=== PATIENT | male | born 1985 | race American Indian/Alaskan Native ===

== ENCOUNTER 2021-01-18 18:28 | Inpatient (IN) | payer OTHER ==
[~2021-01-18] VITALS: Ht 172.7 cm; Wt 119.6 kg
[~2021-01-18 18:28] MED LIST: CEPHALEXIN500 MG PO
--- NOTE | 2021-01-21 14:55 | EKG ---
[facility] [address] [place] [address] Signed Suspect arm lead reversal, interpretation assumes no reversal Unusual P axis, possible ectopic atrial rhythm Lateral infarct , age undetermined Inferior infarct , age undetermined Abnormal ECG No previous ECGs available Confirmed by LOUIS RICHARDSON MD ([id number]) on 01/21/2021 2:55:01 PM Electronically Signed By: LOUIS RICHARDSON MD 01/21/21 1455 PATIENT NAME: REBECA FLORES Electrocardiogram DATE OF : 83 PHYSICIAN: LOUIS RICHARDSON MD REPORT #: [id number] REPORT IS CONFIDENTIAL AND NOT TO BE RELEASED WITHOUT AUTHORIZATION
[2021-01-23] MEDS ORDERED: NICOTINE PATCH1 EACH TD (11:22)
[2021-01-23] MEDS ORDERED: HYDROXYZINE PAM25 MG PO (11:22)
[2021-01-23] MEDS ORDERED: CULTURELLE1 EAC1 PO (11:22)
[2021-01-23] MEDS ORDERED: AMOX TR-K CLV1 EAC1 PO (11:22)
== END 2021-01-23 14:47 | DRG 896 ==
LOC: ED 18:28 → CCU 18:30
PROVIDERS: ADMIT Internal Medicine; ATTEND Internal Medicine
PROC: 0BH17EZ Insertion of Endotracheal Airway into Trachea, Via Natural or Artificial Opening (ICD-10-PCS; principal; 2021-01-18)
PROC: 5A1935Z Respiratory Ventilation, Less than 24 Consecutive Hours (ICD-10-PCS; 2021-01-18)
DX: F10.129 Alcohol abuse with intoxication, unspecified (principal); J96.01 Acute respiratory failure with hypoxia; J18.9 Pneumonia, unspecified organism; G92.8 Other toxic encephalopathy; R45.851 Suicidal ideations; Z20.822 Contact with and (suspected) exposure to COVID-19; F32.A Depression, unspecified; Y90.8 Blood alcohol level of 240 mg/100 ml or more
CPT/HCPCS: 36600; 51702; 71045; 80048; 80053; 81001; 82803; 83605; 83735; 85025; 87040; 93005; 93010; 94002; 94003; 96372; 96375; 96376; 99285-25; C9113; G0378; G0480; J0295; J0456; J1650; J2060; J2250; J2405; J2704; J2765; J3411; J3475; J3480; J7030; J7060; J7121; Q0177; U0003

== ENCOUNTER 2023-07-08 14:12 | Inpatient (IN) | payer OTHER ==
[~2023-07-08] VITALS: Ht 172.7 cm; Wt 96.4 kg
[~2023-07-08 14:12] MED LIST changes: +AMOX TR-K CLV1 EAC1 PO; +CULTURELLE1 EAC1 PO; +HYDROXYZINE PAM25 MG PO; +NICOTINE PATCH1 EACH TD
[2023-07-08] MEDS ORDERED: SODIUM CHLORIDE 0.9% 1,000 ML IV ONE ×2 (14:30→23:30)
[2023-07-08 14:37] LABS: BASOPHILS 0.3 % (0-2); HEMATOCRIT 53.3 % (35.0-50.0); HEMOGLOBIN 18.1 g/dL (12.0-18.0); MCH 29.7 (27-36); MCHC 33.9 g/dl (30-36); MCV 87.6 fl (81-99); MONOCYTES 2.8 % (0-12); NEUTROPHILS 82.9 % (39-80); PLATELET COUNT 294 K/uL (140-440); RBC 6.08 M/ul (4.3-5.7); RDW 13.2 (10.5-15.0)
[2023-07-08] MEDS ORDERED: ondansetron HCL 4 MG/2 ML VIAL IV ONE ×2 (14:45→21:30)
[2023-07-08 14:54] LABS: ACETAMINOPHEN 0 ug/mL (10-30); ALKALINE PHOSPHATASE 141 U/L (46-116); ALT (SGPT) 49 U/L (14-59); ANION GAP 31.5 (7-21); AST (SGOT) 40 U/L (15-37); BILIRUBIN, TOTAL 0.7 ng/dL (0.2-1.0); BUN/CREATININE RATIO 7.07 (6.0-28.6); CALCIUM 7.5 mg/dL (8.5-10.1); CARBON DIOXIDE 12 mmol/L (21-32); CHLORIDE 88 mmol/L (98-107); CREATININE, SERUM 0.99 mg/dL (0.70-1.30); GLOMERULAR FILTRATION RATE,EST 99 mL/min (>60); POTASSIUM 3.5 mmol/L (3.5-5.1); UREA NITROGEN 7 mg/dL (7-18)
[2023-07-08 14:55] LABS: ALCOHOL, MEDICAL 367 ng/dL (<3)
[2023-07-08] MEDS ORDERED: HALOPERIDOL LACTATE 5 MG/ML VIAL IV ONE (15:00)
[2023-07-08] MEDS ORDERED: LORazepam 2 MG/ML VIAL IV ONE ×2 (15:00→23:30)
[2023-07-08 15:36] LABS: METHADONE, URINE NEGATIVE (NEGATIVE)
[2023-07-08 16:16] LABS: AMPHETAMINES, URINE NEGATIVE (NEGATIVE); BARBITURATES, URINE NEGATIVE (NEGATIVE); BENZODIAZEPINE, URINE NEGATIVE (NEGATIVE); BUPRENORPHINE, URINE NEGATIVE (NEGATIVE); CANNABINOID, URINE NEGATIVE (NEGATIVE); COCAINE, URINE NEGATIVE (NEGATIVE); ECSTASY, URINE NEGATIVE (NEGATIVE); FENTANYL, URINE NEGATIVE (NEGATIVE); OPIATES, URINE NEGATIVE (NEGATIVE); OXYCODONE, URINE NEGATIVE (NEGATIVE); PHENCYCLIDINE, URINE NEGATIVE (NEGATIVE)
[2023-07-08] MEDS ORDERED: droPERidol 5 MG/2 ML VIAL IV ONE (22:45)
[2023-07-08] MEDS ORDERED: DEXAMETHASONE SOD PHOS 4 MG/ML VIAL IV ONE (23:30)
[2023-07-08] MEDS ORDERED: ondansetron HCL 4 MG/2 ML VIAL IV PRN (23:30)
[2023-07-08] MEDS ORDERED: diphenhydrAMINE HCL 50 MG/ML VIAL IV ONE (23:30)
[2023-07-08] MEDS ORDERED: droPERidol 5 MG/2 ML VIAL IV PRN (23:30)
[2023-07-08] MEDS ORDERED: PROCHLORPERAZINE EDISYLATE 10 MG/2 ML VIAL IV PRN (23:30)
[2023-07-09] VITALS (13 sets, daily range): BP systolic 126–156; BP diastolic 63–87
[2023-07-09] MEDS ORDERED: LORazepam 2 MG/ML VIAL IV PRN (06:15)
[2023-07-09] MEDS ORDERED: LORazepam 2 MG/ML VIAL IV ONE (08:00)
[2023-07-09] MEDS ORDERED: FAMOTIDINE 20 MG/ 2 ML VIAL IV ONE (08:45)
[2023-07-09 10:05] LABS: ANION GAP 27.7 (7-21); BUN/CREATININE RATIO 9.27 (6.0-28.6); CALCIUM 7.6 mg/dL (8.5-10.1); CREATININE, SERUM 0.97 mg/dL (0.70-1.30); POTASSIUM 3.7 mmol/L (3.5-5.1)
[2023-07-09] MEDS ORDERED: MULTIVITAMINS/MINERALS 1 EA TAB PO ONE (10:30)
[2023-07-09] MEDS ORDERED: THIAMINE HCL 200 MG/2 ML VIAL IV ONE (10:30)
[2023-07-09] MEDS ORDERED: SODIUM CHLORIDE 0.9% 1,000 ML IV ONE ×3 (10:30→13:30)
[2023-07-09] MEDS ORDERED: FOLIC ACID 1 MG/0.2 ML ML IV ONE (10:30)
[2023-07-09 10:40] LABS: PH, VENOUS 7.233 (7.31-7.41)
[2023-07-09] MEDS ORDERED: MULTIVITAMINS 10 ML,FOLIC ACID 1 MG,THIAMINE HCL 100 MG in SODIUM CHLORIDE 0.9% 1,000 ML IV ONE (10:45)
[2023-07-09] MEDS ORDERED: Insulin Regular, Human 100 UNIT/ML ML IV ONE (11:15)
[2023-07-09] MEDS ORDERED: ENOXAPARIN SODIUM 40 MG/0.4 ML SYR SUB-Q SCH (11:49)
[2023-07-09] MEDS ORDERED: DEXTROSE 5% 1,000 ML IV PRN (12:00)
[2023-07-09] MEDS ORDERED: GLUCAGON,HUMAN RECOMBINANT 1 MG/ML VIAL SUB-Q PRN (12:00)
[2023-07-09] MEDS ORDERED: DEXTROSE 50% 50 ML SYR IV PRN ×2 (12:00)
[2023-07-09] MEDS ORDERED: PHARMACY RENAL DOSE ADJUSTMENT 1 DOSE MISC PO SCH (12:00)
[2023-07-09] MEDS ORDERED: Insulin Regular 100 Unit/100 Ml Bag IV SCH (12:00)
[2023-07-09] MEDS ORDERED: IBLOOD GLUCOSE TEST STRIP 1 EA TEST XX PRN (12:00)
[2023-07-09] MEDS ORDERED: IBLOOD GLUCOSE TEST STRIP 1 EA TEST VI SCH (12:00)
[2023-07-09] MEDS ORDERED: D5%-NACL 0.9% 20 KCL 1,000 ML IV SCH (12:00)
[2023-07-09] MEDS ORDERED: diazePAM 5 MG TAB PO PRN (12:15)
[2023-07-09] MEDS ORDERED: FOLIC ACID 1 MG/0.2 ML ML IV SCH (12:15)
[2023-07-09] MEDS ORDERED: diazePAM 10 MG/2 ML SYR IV PRN (12:15)
[2023-07-09 13:11] LABS: EOSINOPHILS 0.1 % (0-6); HEMATOCRIT 42.7 % (35.0-50.0); HEMOGLOBIN 14.2 g/dL (12.0-18.0); LYMPHOCYTES 10.4 % (24-44); MCH 29.3 (27-36); MCHC 33.2 g/dl (30-36); MCV 88.1 fl (81-99); NEUTROPHILS 83.5 % (39-80); PLATELET COUNT 191 K/uL (140-440); RBC 4.85 M/ul (4.3-5.7); RDW 13.2 (10.5-15.0)
[2023-07-09] MEDS ORDERED: LORazepam 1 MG TAB PO PRN (13:30)
[2023-07-09] MEDS ORDERED: LORazepam 2 MG/ML VIAL IV/IM PRN (13:30)
[2023-07-09] MEDS ORDERED: THIAMINE HCL 500 MG in DEXTROSE 5% 100 ML IV SCH (14:00)
[2023-07-09 14:15] LABS: ANION GAP 23.7 (7-21); BUN/CREATININE RATIO 8.08 (6.0-28.6); CALCIUM 7.3 mg/dL (8.5-10.1); CREATININE, SERUM 0.99 mg/dL (0.70-1.30); MAGNESIUM 1.9 mg/dL (1.8-2.4); POTASSIUM 3.7 mmol/L (3.5-5.1)
[2023-07-09] MEDS ORDERED: DEXTROSE 5% - LACTATED RINGERS 1,000 ML IV SCH (14:45)
[2023-07-09] MEDS ORDERED: SODIUM CHLORIDE 0.9% IV PRN (15:00)
[2023-07-09] MEDS ORDERED: CHLORPROMAZINE HCL IV PRN (15:00)
[2023-07-09 16:02] LABS: PH, VENOUS 7.216 (7.31-7.41)
[2023-07-09 16:13] LABS: ANION GAP 26.5 (7-21); BUN/CREATININE RATIO 7.07 (6.0-28.6); CALCIUM 7.2 mg/dL (8.5-10.1); CREATININE, SERUM 0.99 mg/dL (0.70-1.30); POTASSIUM 3.5 mmol/L (3.5-5.1)
[2023-07-09] MEDS ORDERED: LACTATED RINGER'S 500 ML IV ONE (17:45)
[2023-07-09 20:32] LABS: PH, VENOUS 7.318 (7.31-7.41)
[2023-07-09 20:46] LABS: BUN/CREATININE RATIO 7.52 (6.0-28.6); CALCIUM 7.4 mg/dL (8.5-10.1); CREATININE, SERUM 0.93 mg/dL (0.70-1.30)
[2023-07-09] MEDS ORDERED: POTASSIUM CHLORIDE 10 MEQ/100 ML BAG IV SCH (21:15)
[2023-07-10] VITALS (10 sets, daily range): BP systolic 112–145; BP diastolic 51–111
[2023-07-10 00:30] LABS: ANION GAP 19.7 (7-21); BUN/CREATININE RATIO 5.26 (6.0-28.6); CALCIUM 7.3 mg/dL (8.5-10.1); CREATININE, SERUM 0.95 mg/dL (0.70-1.30); POTASSIUM 2.7 mmol/L (3.5-5.1)
[2023-07-10] MEDS ORDERED: MAGNESIUM SULFATE 1 GM in DEXTROSE 5% 100 ML IV ONE (01:00)
[2023-07-10] MEDS ORDERED: MAGNESIUM SULFATE 2 GM/50 ML BAG IV ONE (01:15)
[2023-07-10] MEDS ORDERED: Insulin Regular, Human 100 UNIT/ML ML SUB-Q SCH ×2 (02:00→02:15)
[2023-07-10] MEDS ORDERED: POTASSIUM CHLORIDE 10 MEQ/100 ML BAG IV SCH (02:30)
[2023-07-10] MEDS ORDERED: IBLOOD GLUCOSE TEST STRIP 1 EA TEST VI SCH ×2 (04:00→12:00)
[2023-07-10] MEDS ORDERED: POTASSIUM CHLORIDE 100 ML IV ONE (04:43)
[2023-07-10 05:21] LABS: EOSINOPHILS 0.1 % (0-6); HEMATOCRIT 40.2 % (35.0-50.0); HEMOGLOBIN 13.7 g/dL (12.0-18.0); LYMPHOCYTES 18.2 % (24-44); MCH 29.3 (27-36); MCHC 34.2 g/dl (30-36); MCV 85.8 fl (81-99); MONOCYTES 4.2 % (0-12); NEUTROPHILS 76.5 % (39-80); PLATELET COUNT 166 K/uL (140-440); RBC 4.68 M/ul (4.3-5.7); RDW 13.2 (10.5-15.0)
[2023-07-10 05:32] LABS: BUN/CREATININE RATIO 4.44 (6.0-28.6); CALCIUM 7.2 mg/dL (8.5-10.1); CREATININE, SERUM 0.9 mg/dL (0.70-1.30)
[2023-07-10] MEDS ORDERED: LACTATED RINGER'S 1,000 ML IV SCH (07:00)
[2023-07-10] MEDS ORDERED: POTASSIUM CHLORIDE 40 MEQ,LIDOCAINE HCL 1% 40 MG in DEXTROSE 5% 500 ML IV ONE (08:00)
[2023-07-10] MEDS ORDERED: POTASSIUM CHLORIDE 10 MEQ TABCR PO ONE (08:00)
[2023-07-10] MEDS ORDERED: hydrOXYzine pamoate 25 MG CAP PO ONE (10:00)
[2023-07-10] MEDS ORDERED: INSULIN LISPRO 100 UNIT/ML ML SUB-Q SCH (12:00)
[2023-07-10] MEDS ORDERED: QUETIAPINE FUMARATE 25 MG TAB PO ONE (12:45)
[2023-07-10] MEDS ORDERED: LACTATED RINGER'S 500 ML IV ONE (12:45)
[2023-07-10] MEDS ORDERED: HUMALOG100 UNITS/ SUB-Q (13:01)
[2023-07-10] MEDS ORDERED: LANCETS1 EACH MISC (14:06)
[2023-07-10] MEDS ORDERED: PEN NEEDLE1 EA10 MISC (14:06)
[2023-07-10] MEDS ORDERED: ACCU-CHEK GUID1 EACH SUB-Q (14:06)
[2023-07-10] MEDS ORDERED: ACCU-CHEK GUID1 EAC1 SUB-Q (14:06)
== END 2023-07-10 14:40 | disposition home or self-care (01) | DRG 638 ==
LOC: ED 14:12 → CCU 07-09 11:49
PROVIDERS: Emergency Medicine; Internal Medicine; ADMIT Internal Medicine; ATTEND Internal Medicine
DX: E11.10 Type 2 diabetes mellitus with ketoacidosis without coma (principal); F10.221 Alcohol dependence with intoxication delirium; F17.210 Nicotine dependence, cigarettes, uncomplicated
CPT/HCPCS: 36415; 80048; 80053; 80307; 82010; 82803; 83036; 83605; 83735; 85025; A9270; G0480; J0780; J1100; J1200; J1630; J1650; J1790; J1815; J2060; J2405; J3411; J3475; J3480; J3490; J7030; J7060; J7121; Q0177

== ENCOUNTER 2024-04-08 02:37 | Emergency (ER) | payer OTHER ==
[~2024-04-08] VITALS: Ht 172.7 cm; Wt 109.8 kg
[~2024-04-08 02:37] MED LIST changes: +ACCU-CHEK GUID1 EAC1 SUB-Q; +ACCU-CHEK GUID1 EACH SUB-Q; +HUMALOG100 UNITS/ SUB-Q; +LANCETS1 EACH MISC; +PEN NEEDLE1 EA10 MISC
[2024-04-08] MEDS ORDERED: ETOMIDATE 40 MG/20 ML VIAL IV ONE (02:45)
[2024-04-08] MEDS ORDERED: ETOMIDATE 40 MG/20 ML VIAL ONE (02:52)
[2024-04-08 03:26] LABS: BASOPHILS 3.5 % (0-2); EOSINOPHILS 2.3 % (0-6); HEMATOCRIT 46.1 % (35.0-50.0); HEMOGLOBIN 15.8 g/dL (12.0-18.0); LYMPHOCYTES 26.2 % (24-44); MCH 30.9 (27-36); MCHC 34.2 g/dl (30-36); MCV 90.4 fl (81-99); MONOCYTES 5.3 % (0-12); NEUTROPHILS 62.7 % (39-80); PLATELET COUNT 278 K/uL (140-440); RBC 5.11 M/ul (4.3-5.7); RDW 16.2 (10.5-15.0)
[2024-04-08 03:33] LABS: ANION GAP 18.3 (7-21); BUN/CREATININE RATIO 1.25 (6.0-28.6); CALCIUM 8.1 mg/dL (8.5-10.1); CREATININE, SERUM 0.8 mg/dL (0.70-1.30); POTASSIUM 3.3 mmol/L (3.5-5.1)
[2024-04-08] MEDS ORDERED: LORazepam 2 MG/ML VIAL IM ONE (04:15)
[2024-04-08] MEDS ORDERED: ACETAMINOPHEN 500 MG TAB PO ONE (04:45)
[2024-04-08] MEDS ORDERED: ONDANSETRON 4 MG TAB ODT SL ONE ×2 (04:45→08:00)
[2024-04-08 08:28] VITALS: BP 151/87
== END 2024-04-08 08:30 | disposition home or self-care (01) ==
LOC: ED 02:37
PROVIDERS: Family Medicine
DX: S06.0XAA Concussion with loss of consciousness status unknown, initial encounter (principal); F17.200 Nicotine dependence, unspecified, uncomplicated; Z79.4 Long term (current) use of insulin; Y08.89XA Assault by other specified means, initial encounter
CPT/HCPCS: 36415; 70450; 70486; 80048; 85025; 96372; 99284-25; A9270; J2060

== ENCOUNTER 2024-04-10 16:12 | Inpatient (IN) | payer OTHER ==
[~2024-04-10] VITALS: Ht 172.7 cm; Wt 108.0 kg
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
[2024-04-10 17:03] LABS: BASOPHILS 0.5 % (0-2); EOSINOPHILS 0.1 % (0-6); HEMATOCRIT 53.1 % (35.0-50.0); HEMOGLOBIN 18.2 g/dL (12.0-18.0); LYMPHOCYTES 19.2 % (24-44); MCH 31.4 (27-36); MCHC 34.2 g/dl (30-36); MCV 91.6 fl (81-99); MONOCYTES 1.5 % (0-12); NEUTROPHILS 78.7 % (39-80); PLATELET COUNT 324 K/uL (140-440); RDW 16.6 (10.5-15.0)
[2024-04-10 17:13] LABS: ALBUMIN 3.6 g/dL (3.4-5.0); ALBUMIN/GLOBULIN RATIO 0.75 (1.1-2.4); ANION GAP 27.4 (7-21); BILIRUBIN, TOTAL 0.4 ng/dL (0.2-1.0); BUN/CREATININE RATIO 14.28 (6.0-28.6); CREATININE, SERUM 0.7 mg/dL (0.70-1.30); POTASSIUM 3.4 mmol/L (3.5-5.1); PROTEIN, TOTAL 8.4 g/dL (6.4-8.2)
[2024-04-10 17:24] LABS: BILIRUBIN, URINE NEGATIVE (negative); BLOOD/HGB, URINE MODERATE (Negative); KETONE, URINE SMALL (Negative); LEUK ESTERASE, URINE NEGATIVE (negative); NITRITE, URINE NEGATIVE (negative); PH, URINE 5.5 (5-7)
[2024-04-10 17:30] LABS: RED BLOOD CELLS, URINE 0-1 /hpf (0-5)
[2024-04-10] MEDS ORDERED: SODIUM CHLORIDE 0.9% 1,000 ML IV PRN ×2 (17:30→18:45)
[2024-04-10 17:31] LABS: CASTS, URINE HYALINE 3+ \\lpf; CRYSTALS, URINE NONE SEEN (0-1+); EPITHELIAL CELLS, URINE SQUAMOUS 1+ /lpf (0-1+)
[2024-04-10 17:32] LABS: BACTERIA, URINE RARE /hpf (negative); COLLECTION TYPE, URINE CATH; REFLEX CULTURE, URINE No (No)
[2024-04-10 17:34] LABS: PH, VENOUS 7.161 (7.31-7.41)
[2024-04-10 17:39] LABS: AMPHETAMINES, URINE NEGATIVE (NEGATIVE); BARBITURATES, URINE NEGATIVE (NEGATIVE); BENZODIAZEPINE, URINE NEGATIVE (NEGATIVE); BUPRENORPHINE, URINE NEGATIVE (NEGATIVE); CANNABINOID, URINE POSITIVE (NEGATIVE); COCAINE, URINE NEGATIVE (NEGATIVE); ECSTASY, URINE NEGATIVE (NEGATIVE); FENTANYL, URINE NEGATIVE (NEGATIVE); METHADONE, URINE NEGATIVE (NEGATIVE); OPIATES, URINE NEGATIVE (NEGATIVE); OXYCODONE, URINE NEGATIVE (NEGATIVE); PHENCYCLIDINE, URINE NEGATIVE (NEGATIVE)
[2024-04-10 17:39] LABS: TSH, 3RD GENERATION 0.203 uIU/mL (0.358-3.740)
[2024-04-10 17:57] LABS: LACTIC ACID, BLOOD 7.7 mmol/L (0.4-2.0)
[2024-04-10] MEDS ORDERED: LACTATED RINGER'S 1,000 ML IV SCH ×2 (19:15→23:15)
[2024-04-10] MEDS ORDERED: GLUCAGON,HUMAN RECOMBINANT 1 MG/ML VIAL SUB-Q PRN (19:15)
[2024-04-10] MEDS ORDERED: ondansetron HCL 4 MG/2 ML VIAL IV PRN (19:15)
[2024-04-10] MEDS ORDERED: DEXTROSE 5% 1,000 ML IV PRN (19:15)
[2024-04-10] MEDS ORDERED: DEXTROSE 50% 50 ML SYR IV PRN ×2 (19:15)
[2024-04-10] MEDS ORDERED: IBLOOD GLUCOSE TEST STRIP 1 EA TEST XX PRN (19:15)
--- NOTE | 2024-04-10 19:55 | NUR ---
patient arrived to room 128 from ER via stretcher. patient transferred from ER stretcher to bed via slide sheet. handoff report received from from ER nurse.
[2024-04-10 20:10] VITALS: BP 140/86
--- NOTE | 2024-04-10 20:15 | NUR ---
patient somnolent, opens eyes briefly to verbal stimuli. patient able to follow some commands. patient notably sweaty on the forehead and around nose. patient temperature on arrival was 96.7 via navarro temp probe. warm blankets placed on patient. patient wakes up for brief second and asks for water, water provided. patient tachycardic, heart rate 100-110's. patient on 4L NC, SPO2 97%. patient navarro cath intact, draining clear yellow urine. patient IV site WNL, IV fluids infusing per emar. patient minimally interactive with cares and questions. this RN unable to obtain health history due to patient cognitive status at this time. patient door and curtain remain open, bed in low and locked position, call light in reach.
[2024-04-10 21:00] VITALS: BP 101/63
[2024-04-10] MEDS ORDERED: PANTOPRAZOLE SODIUM 40 MG/10 ML VIAL IV SCH (21:00)
[2024-04-10] MEDS ORDERED: IBLOOD GLUCOSE TEST STRIP 1 EA TEST VI SCH (21:00)
[2024-04-10] MEDS ORDERED: INSULIN LISPRO 100 UNIT/ML ML SUB-Q SCH (21:00)
[2024-04-10] MEDS ORDERED: ALBUTEROL SULFATE 0.083% 3 ML VIAL INH PRN (21:30)
[2024-04-10 21:44] LABS: PH, VENOUS 7.266 (7.31-7.41)
[2024-04-10 22:00] VITALS: BP 104/49
[2024-04-10 22:12] LABS: ANION GAP 22.8 (7-21); BUN/CREATININE RATIO 12.96 (6.0-28.6); CALCIUM 6.7 mg/dL (8.5-10.1); CREATININE, SERUM 0.54 mg/dL (0.70-1.30); POTASSIUM 3.8 mmol/L (3.5-5.1)
--- NOTE | 2024-04-10 22:18 | EKG ---
[facility] [address] [facility] [place] [address] Signed Normal sinus rhythm Normal ECG When compared with ECG of 18-JAN-2021 19:35, Sinus rhythm has replaced Ectopic atrial rhythm QRS axis shifted left Criteria for Lateral infarct are no longer present Criteria for Inferior infarct are no longer present Confirmed by Sanchez Ho MD () on 04/10/2024 10:18:18 PM Electronically Signed By: SANCHEZ HO MD 04/10/24 2218 PATIENT NAME: REBECA FLORES Electrocardiogram DATE OF : 83 PHYSICIAN: SANCHEZ HO MD REPORT #: [id number] REPORT IS CONFIDENTIAL AND NOT TO BE RELEASED WITHOUT AUTHORIZATION
[2024-04-10] MEDS ORDERED: DEXTROSE 5% - LACTATED RINGERS 1,000 ML IV SCH (22:30)
--- NOTE | 2024-04-10 22:35 | NUR ---
DOCTOR ROUNDING ON PATIENT AND PROVIDED WITH UPDATE. NEW ORDER RECEIVED PER EMAR.
--- NOTE | 2024-04-10 22:57 | NUR ---
NEW 20G IV STARTED IN PATIENT RIGHT FOREARM. PATIENT TOLERATED WELL. PATIENT ASKS FOR MORE WATER. WATER PROVIDED. PATIENT CONTINUES TO NOT ANSWER QUESTIONS BUT DOES FOLLOW SOME COMMANDS. PATIENT FINISHES WATER THEN DRIFTS BACK TO SLEEP. PATIENT HAS CALL LIGHT IN REACH. BED IN LOW AND LOCKED POSITION.
[2024-04-10 23:00] VITALS: BP 96/49
--- NOTE | 2024-04-10 23:15 | NUR ---
DOCTOR [place] CALLED AND UPDATED ON PATIENT LOW BLOOD PRESSURE. NEW ORDERS RECEIVED PER EMAR.
[2024-04-11] VITALS (19 sets, daily range): BP systolic 103–151; BP diastolic 49–83
--- NOTE | 2024-04-11 00:30 | NUR ---
PATIENT NOTED TO DESAT LOW 83% WHILE SLEEPING ON 4L NC. PATIENT NOW ON OXYMASK AT 4L, SPO2 94%. LR BOLUS INFUSING PER EMAR, IV SITE WNL. ROSS CATH INTACT. PATIENT HAS NO NEEDS AT THIS TIME. CALL LIGHT IN REACH.
--- NOTE | 2024-04-11 02:05 | NUR ---
PATIENT RESTING IN BED WITH EYES CLOSED, RR 16. PATIENT REMAINS TACHYCARDIC, HEART RATE 100-120'S. 2L LR BOLUS COMPLETED. IV FLUID INFUSING PER EMAR. IV SITES WNL. PATIENT REMAINS ON 4L OXYMASK, SPO2 97%. PATIENT BG CHECKED; 127. PATIENT HAS NO NEEDS AT THIS TIME. CALL LIGHT IN REACH.
--- NOTE | 2024-04-11 04:00 | NUR ---
PATIENT RESTING IN BED WITH EYES CLOSED, RESPIRATIONS EVEN AND UNLABORED. PATIENT HAS NO NEEDS AT THIS TIME. CALL LIGHT IN REACH, BED IN LOW AND LOCKED POSITON WITH BED ALARM ON.
--- NOTE | 2024-04-11 05:55 | NUR ---
morning labs drawn off patient IV site and sent to lab. patient titrated down to 2L oxymask, SPO2 94%. patient request more ice water, water provided. patient has no further needs at this time. call light in reach.
[2024-04-11 06:02] LABS: PH, VENOUS 7.363 (7.31-7.41)
[2024-04-11 06:04] LABS: BASOPHILS 0.6 % (0-2); EOSINOPHILS 0.5 % (0-6); HEMATOCRIT 39.7 % (35.0-50.0); HEMOGLOBIN 13.5 g/dL (12.0-18.0); LYMPHOCYTES 17.8 % (24-44); MCH 30.9 (27-36); MCV 90.9 fl (81-99); NEUTROPHILS 77.1 % (39-80); PLATELET COUNT 230 K/uL (140-440); RBC 4.36 M/ul (4.3-5.7); RDW 16.1 (10.5-15.0)
--- NOTE | 2024-04-11 06:10 | NUR ---
patient taken off oxymask, now on room air, SPO2 93%. patient remains drowsy, able to follow some commands. patient opens eyes to verbal stimuli for brief second then drifts back to sleep. patient has IVF infusing per emar. IV sites WNL. navarro cath intact, navarro care done. no needs at this time. call light in reach.
[2024-04-11 06:23] LABS: ALBUMIN 2.5 g/dL (3.4-5.0); ALBUMIN/GLOBULIN RATIO 0.69 (1.1-2.4); ANION GAP 16.3 (7-21); BILIRUBIN, TOTAL 0.4 ng/dL (0.2-1.0); BUN/CREATININE RATIO 8.33 (6.0-28.6); CALCIUM 6.6 mg/dL (8.5-10.1); CREATININE, SERUM 0.6 mg/dL (0.70-1.30); MAGNESIUM 1.1 mg/dL (1.8-2.4); PHOSPHORUS, INORGANIC 2.3 mg/dL (2.5-4.9); POTASSIUM 3.3 mmol/L (3.5-5.1); PROTEIN, TOTAL 6.1 g/dL (6.4-8.2)
--- NOTE | 2024-04-11 08:17 | NUR ---
AM ASSESSMENT COMPLETE - PT DROWSY BUT WAKES TO TOUCH/VOICE, NOT ORIENTED TO PERSON PLACE OR SITUATION. STATES "I CANT REMEMBER" WHEN ASKED HIS NAME. SPEECH IN SLOW TO RESPOND BUT NOT GARBLED. PT OCCSIONALLY LOOKING AROUND ROOM IF CONFUSED ABOUT LOCATION DESPITE BEING REORIENTED. TREMOR IN RIGHT HAND/ARM NOTED WHEN ASKED TO SQUEEZE HANDS - WEAK BILL OF LADING CLERK RESPONSE BUT NOTED TO MOVE ALL EXTREMETIES SPONTANEOUSLY IN BED. AFEBRILE, SINUS TACH WITH HR 110'S AT REST. SKIN WARM TO TOUCH AND FLUSHED. BP NOW STABLE. SPO2 STABLE ON ROOM AIR. IV SITE PATENT X2. CBG THIS AM 146, 1 UNIT SS COVERAGE NEEDED. PT SIPS WATER BUT GRIMACES, NOT INTERESTED IN FURTHER SIPS. REPOSISTIONED IN BED, BED ALARM ON.
[2024-04-11] MEDS ORDERED: POTASSIUM PHOSPHATE 30 MMOL in DEXTROSE 5% 500 ML IV ONE (09:00)
[2024-04-11] MEDS ORDERED: ENOXAPARIN SODIUM 40 MG/0.4 ML SYR SUB-Q SCH (09:00)
[2024-04-11] MEDS ORDERED: MAGNESIUM SULFATE 2 GM/50 ML BAG IV SCH ×2 (09:00→23:15)
[2024-04-11] MEDS ORDERED: Calcium Gluconate in NS 1,000 MG/50 ML BAG IV ONE (09:15)
[2024-04-11] MEDS ORDERED: KETOROLAC TROMETHAMINE 15 MG/ML VIAL IV PRN (09:15)
--- NOTE | 2024-04-11 09:24 | NUR ---
RN ROUNDING WITH MD - PT REMIANS DISORIENTED TO ALL, FOLLOWS COMMANDS MINIMALLY AND WAKES WITH RICO VOICE/TOUCH. REPORTS HEADACHE WITHOUT SPECIFIC LOCATION, UNABLE TO DESCRIBE. CURRENT POC REVIEWED WITH MD - ORDERS ENTERED.
[2024-04-11] MEDS ORDERED: LACTATED RINGER'S 1,000 ML IV ONE (09:30)
--- NOTE | 2024-04-11 10:57 | NUR ---
PT WAKES BY VOICE, REMAINS DISORIENTED BUT ANSWERING QUESTIONS MORE QUICKLY. STATES TORADOL PROVIDED NO RELIEF TO HEADACHE, DENIES PAIN ANYWHERE ELSE ON HIS BODY. MAG INFUSION COMPLETE. BOLUS STILL INFUSING.
--- NOTE | 2024-04-11 11:52 | NUR ---
PT WAKING SPONTANEOUSLY IN BED BY OBSERVATION BY THIS RN - CONTINUES TO MOVE ALL LIMBS SPONTANEOUSLY, ABLE TO GRASP WATER CUP AND LIFT TO MOUTH. PTS ONLY RESPONSE TO ALL QUESTIONS IS "I DONT KNOW I CANT REMEMBER". PT RATES PAIN 10/10 WHEN ASKED ABOUT HEADACHE. AND REPORTS NAUSEA. TREMOR SIGNIFICANT IN HANDS, WORSE IN RIGHT WITH INTENTIONAL MOVEMENT. CONCERN FOR WITHDRAWL SYMPTOMS AT THIS TIME. HR IMPROVED TO 90'S WHILE SLEEPING AFTER BOLUS BUT REMAINS UP TO 130'S WHILE AWAKE. PT REPOSISTONED IN BED.
[2024-04-11] MEDS ORDERED: PHARMACY RENAL DOSE ADJUSTMENT 1 DOSE MISC PO SCH (12:00)
--- NOTE | 2024-04-11 12:47 | NUR ---
UPDATED ON CONCERN FOR WITHDRAWL SYMPTOMS. WILL CONTINUE TO MONITOR AT THIS TIME.
[2024-04-11] MEDS ORDERED: LORazepam 1 MG TAB PO PRN (13:45)
[2024-04-11] MEDS ORDERED: THIAMINE HCL 100 MG,FOLIC ACID 1 MG,MULTIVITAMINS 10 ML in SODIUM CHLORIDE 0.9% 1,000 ML IV ONE (13:45)
[2024-04-11] MEDS ORDERED: LORazepam 2 MG/ML VIAL IV/IM PRN (13:45)
--- NOTE | 2024-04-11 14:04 | NUR ---
PT CIWA SCORE 26 - 1MG IV ATIVAN ADMINISTERED. PT AWAKE IN BED BUT STILL STATES HE REMEMBERS NOTHING. PT USING BUTTONS ON BED TO REPOSISTION HEAD OF BED BY SELF.
[2024-04-11] MEDS ORDERED: LACTATED RINGER'S 1,000 ML IV SCH (14:45)
--- NOTE | 2024-04-11 15:41 | NUR ---
PT MORE ALERT AND ORIENTED TO FIRST NAME. CIWA SCORE REMAINS ABOVE 20, 1MG IV ATIVAN ADMINISTERED. LR BOLUSES RUNNING R/T INCREASING CK.
--- NOTE | 2024-04-11 16:39 | NUR ---
PT RESTING IN BED ASLEEP - APPEARS MORE COMFORTABLE. 2L NC IN PLACE TO SUSTAIN SPO2 WHILE SLEEPING. SECOND LR BOLUS STARTED. IV SITES ASSESSED AND PATENT.
--- NOTE | 2024-04-11 20:09 | NUR ---
SBAR REPORT RECEIVED FROM SANDEE BROOKS. ALL EVENTS OF THE DAY WERE DISCUSSED AND PLAN OF CARE REVIEWED. REBECA IS NOTED TO BE RESTING IN BED. HE IS DISORIENTED TO TIME (MONTH/YEAR/ AND PRESIDENT). REBECA ENDORSES A HEADACHE 8/10, FEELS HOT AND COLD, AND HAS GENERALIZED TREMORS. GENERALIZED WEAKNESS NOTED
--- NOTE | 2024-04-11 20:31 | NUR ---
1MG ATIVAN ADMINISTERED PER CIWA PROTOCOL. CIWA 16
--- NOTE | 2024-04-11 22:02 | NUR ---
PERISISTENT HYPOTENSION. MD HO IN THE UNIT. SEE EMAR FOR NEW ORDERS. PRECEDEX DECREASED ONCE AGAIN TO 0.2MCG/KG/HR
--- NOTE | 2024-04-11 22:05 | NUR ---
REBECA IS RESTING WITH EYES CLOSED. HE APPEARS COMFORTABLE. NO NEEDS IDENTIFIED AT THIS TIME. MAINTENANCE FLUIDS DISCUSSED WITH MD HO. PLAN IS TO KEEP THEM RUNNING UNTIL REBECA BEGINS TO EAT REGULARLY FOR CALORIC AID.
[2024-04-11 22:47] LABS: HEMOGLOBIN 13.9 g/dL (12.0-18.0)
[2024-04-11 22:50] LABS: EOSINOPHILS 0.7 % (0-6); HEMATOCRIT 40.3 % (35.0-50.0); LYMPHOCYTES 23.6 % (24-44); MCH 30.9 (27-36); MCHC 34.4 g/dl (30-36); MCV 89.9 fl (81-99); MONOCYTES 6.1 % (0-12); NEUTROPHILS 68.6 % (39-80); PLATELET COUNT 193 K/uL (140-440); RBC 4.49 M/ul (4.3-5.7)
[2024-04-11 22:56] LABS: ALBUMIN 2.6 g/dL (3.4-5.0); ALBUMIN/GLOBULIN RATIO 0.7 (1.1-2.4); ANION GAP 8.8 (7-21); BILIRUBIN, TOTAL 1.2 ng/dL (0.2-1.0); BUN/CREATININE RATIO 2.85 (6.0-28.6); CALCIUM 7.2 mg/dL (8.5-10.1); CREATININE, SERUM 0.7 mg/dL (0.70-1.30); MAGNESIUM 1.5 mg/dL (1.8-2.4); POTASSIUM 2.8 mmol/L (3.5-5.1); PROTEIN, TOTAL 6.3 g/dL (6.4-8.2)
[2024-04-11] MEDS ORDERED: POTASSIUM CHLORIDE 10 MEQ/100 ML BAG IV SCH (23:15)
[2024-04-11] MEDS ORDERED: POTASSIUM CHLORIDE 10 MEQ/100 ML BAG IV ONE (23:15)
--- NOTE | 2024-04-11 23:49 | NUR ---
REBECA IS NOTED TO BE RESTING WITH EYES CLOSED. HE REMAINS DISORITENTED TO TIME. OTHERWISE ORIENTED. BAGS 1:2 MAGNESIUM AND 1:4 POTASSIUM HUNG AND BEING ADMINISTERED. REBECA STATES THAT HE DOES NOT NEED ANYTHING AT THE MOMENT
[2024-04-12] VITALS (13 sets, daily range): BP systolic 121–167; BP diastolic 73–109
[2024-04-12] MEDS ORDERED: ACETAMINOPHEN 500 MG TAB PO PRN (00:15)
--- NOTE | 2024-04-12 00:37 | NUR ---
PRN ACETAMINOPHEN GIVEN FOR A REPORTED HEADACHE 10/11. WILL REASSESS WHEN APPROPRIATE
--- NOTE | 2024-04-12 04:22 | NUR ---
INDEPENDENT REPOSITION ONTO LEFT SIDE. REBECA IS RESTING WITH EYES CLOSED, APPEARS COMFORTABLE, VSS PER MONITOR. NO NEEDS IDENTIFIED AT THIS TIME CIWA COMPLETED (9). HE IMMEDIATELY WENT BACK TO RESTING ONCE COMPLETED
[2024-04-12 05:28] LABS: BASOPHILS 0.8 % (0-2); EOSINOPHILS 0.8 % (0-6); HEMATOCRIT 40.5 % (35.0-50.0); HEMOGLOBIN 14.3 g/dL (12.0-18.0); LYMPHOCYTES 19.1 % (24-44); MCH 31.4 (27-36); MCHC 35.4 g/dl (30-36); MCV 88.8 fl (81-99); MONOCYTES 5.3 % (0-12); PLATELET COUNT 190 K/uL (140-440); RBC 4.56 M/ul (4.3-5.7); RDW 15.6 (10.5-15.0)
[2024-04-12 05:47] LABS: ALBUMIN 2.6 g/dL (3.4-5.0); ALBUMIN/GLOBULIN RATIO 0.7 (1.1-2.4); ANION GAP 10.2 (7-21); BILIRUBIN, TOTAL 1.1 ng/dL (0.2-1.0); BUN/CREATININE RATIO 3.33 (6.0-28.6); CALCIUM 7.2 mg/dL (8.5-10.1); CREATININE, SERUM 0.6 mg/dL (0.70-1.30); MAGNESIUM 2.2 mg/dL (1.8-2.4); POTASSIUM 3.2 mmol/L (3.5-5.1); PROTEIN, TOTAL 6.3 g/dL (6.4-8.2)
--- NOTE | 2024-04-12 06:59 | NUR ---
PATIENT REBECA COMPLAINED OF A HEADACHE 11/11. REASSESSMENT OF CIWA PERFORMED. SEE ASSESSMENT FOR DETAILS. PRN LORAZEPAM AND TORADOL GIVEN. REBECA IS NOW RESTING IN BED WITH EYES CLOSED. DISCUSSED CIWA, POLYURIA, AND LABS WITH MD HO. HE WILL ASSESS EARLY THIS AM
[2024-04-12] MEDS ORDERED: IBUPROFEN 600 MG TAB PO PRN (08:30)
[2024-04-12] MEDS ORDERED: POTASSIUM PHOSPHATE 30 MMOL in DEXTROSE 5% 500 ML IV ONE (08:30)
--- NOTE | 2024-04-12 08:40 | NUR ---
PT RESTING IN BED ASLEEP BUT WAKES EASILY. PT REPORTS NAUSEA AND UNINTERESTED IN EATING BREAKFAST. PRN ZOFRAN AND IBP ADMINISTERED FOR THIS. TREMORS APPEAR TO BE IMPROVED THIS AM AFTER PO ATIVAN DOSE WHEN USING HANDS TO REACH FOR DRINK/MEDS. PT ORIENTED TO PLACE AND SELF, UNSURE OF DATE. POLYURIA NOTED, 1300ML URINE OUT FOR LAST 2 HOURS.
[2024-04-12] MEDS ORDERED: THIAMINE HCL 100 MG TAB PO SCH (09:00)
[2024-04-12] MEDS ORDERED: PANTOPRAZOLE SODIUM 40 MG TABEC PO SCH (09:00)
[2024-04-12] MEDS ORDERED: THIAMINE HCL 100 MG in SODIUM CHLORIDE 0.9% 100 ML IV SCH (09:00)
--- NOTE | 2024-04-12 09:56 | NUR ---
PO ATIVAN ADMINISTERED FOR CIWA SCORE OF 19 - PT STILL EXPERIENCING TREMORS, HEADACHE, NAUSEA AND ANXIETY. NAUSEA AND PAIN NOT IMPROVED BY ZOFRAN OR IBP ADMINISTERED EARLIER. DENIES FURTHER NEEDS AT THIS TIME. MD IN ROOM TO ROUND.
[2024-04-12] MEDS ORDERED: PROCHLORPERAZINE EDISYLATE 10 MG/2 ML VIAL IV PRN ×2 (10:15→10:30)
--- NOTE | 2024-04-12 11:30 | NUR ---
PT UP TO EDGE OF BED FOR BED BATH AND TO BRUSH TEETH. PT REPORTS DIZZINESS UPON SITTING UP WITHOUT CHANGE IN VS/HR. PT C/O OVERALL FEELING PAINFUL AND WEAK. EDUCATION DONE REGARDING RHABDO AND DECONDITIONING. ROSS CARE COMPLETE, FULL BED LINEN CHANGE. PT AMBULATED TO CHAIR STANDBY ASSIST FOR LINE MANAGMENT.
--- NOTE | 2024-04-12 12:30 | NUR ---
PT MORE ALERT SITTING IN CHAIR. COMPAZINE ADMINISTERED FOR INCREASING NAUSEA SITTING UP. CIWA SCORE 18 - PO ATIVAN ADMINISTERED. LUNCH PROVIDED FOR PT, STATES HE IS HUNGRY DESPITE NAUSEA. PT CHANGING CHANNELS ON TV USING REMOTE. 1 UNIT INSULIN COVERAGE FOR CBG. CALL LIGHT IN REACH.
--- NOTE | 2024-04-12 12:40 | NUR ---
MED REC COMPLETE
--- NOTE | 2024-04-12 14:00 | NUR ---
PT RESTING IN BED ASLEEP WITHOUT SIGNS OF DISTRESS. CALL LIGHT IN REACH.
[2024-04-12] MEDS ORDERED: LACTATED RINGER'S 1,000 ML IV SCH (14:30)
--- NOTE | 2024-04-12 15:06 | NUR ---
PT WAKES EASILY TO OBTAIN VS. STATES HIS NAUSEA IS "A LITTLE BETTER". ATE MASH POTATOES AND TURKEY WITHOUT EMESIS. STILL RATES HEADACHE 10/10. CIWA SCORE 12. CALL LIGHT IN REACH, QUICKLY BACK TO SLEEP.
--- NOTE | 2024-04-12 17:00 | NUR ---
CIWA SCORE 14 - PERSISTANT HEADACHE AND NAUSEA THAT IS UNRELEAVED WITH ATIVAN AND PREVIOUS PRNS. PT DENIES WANTING TO EAT DINNER RIGHT NOW, PRN GIVEN FOR NAUSEA. URINE OUTPUT SLOWING DOWN FROM ROSS, CLEAR YELLOW VS DILUTE. VISITOR "DEEJAY" IN ROOM TO VISIT, BACKPACK BROUGHT TO PT- DEEJAY DENIES BACKPACK HAS DRUGS, ALCOHOL OR ANY WEAPONS, PLACED IN CLOSET. UPDATED ON CIWA SCORES AND RESPONSE TO ATIVAN DOSES.
[2024-04-12] MEDS ORDERED: diazePAM 5 MG TAB PO PRN (17:30)
--- NOTE | 2024-04-12 18:51 | NUR ---
PT RESTING IN BED WITH EYES CLOSED AFTER DINNER. ATE 100% DESPITE NAUSEA. HEADACHE PAIN RATED 10/10 STILL. VS STABLE ON MONITOR. VISITOR AT BEDSIDE.
--- NOTE | 2024-04-12 20:46 | NUR ---
REBECA IS NOTED TO BE RESTING IN BED AND WATCHING TELEVISION. HE IS ALERT AND ORIENTED X4, COMPLAINS OF HEADACHE 10/10, AUDITORY HALLUCINATIONS, AND SLIGHT NAUSEA. DIAZEPAM PER CIWA ORDERS. CIWA 15 ON ASSESSEMENT. TREMORS IN HANDS/FEET MODEERATE. 1UNIT INSULIN GIVEN SEE EMAR. ROSS CATHETER PATENT AND INTACT. 300 CLEAR/YELLOW URINE THIS HOUR
[2024-04-12 22:41] LABS: ANION GAP 9.3 (7-21); BUN/CREATININE RATIO 5.17 (6.0-28.6); CALCIUM 7.8 mg/dL (8.5-10.1); CREATININE, SERUM 0.58 mg/dL (0.70-1.30); POTASSIUM 3.3 mmol/L (3.5-5.1)
--- NOTE | 2024-04-12 22:57 | NUR ---
REBECA IS RESTING IN BED WITH EYES CLOSED. HE IS EASILY AROUSED TO VOICE AND DENIES ANY NEEDS THIS HOUR. VSS AND WDL PER MONITOR
[2024-04-12] MEDS ORDERED: POTASSIUM CHLORIDE 10 MEQ TABCR PO ONE (23:15)
[2024-04-13] VITALS (10 sets, daily range): BP systolic 111–151; BP diastolic 54–95
--- NOTE | 2024-04-13 00:59 | NUR ---
REBECA IS RESTING IN BED WITH EYES CLOSED. HE APPEARS COMFORTBLE AND EASILY AROUSES TO VOICE. PASSING FLATUS. SONOROUS BREATHING PATTERN. VSS WDL PER MONITOR. ROSS CATHETER UROMETER EMPTIED. URINE IS YELLOW/ CLEAR.
--- NOTE | 2024-04-13 03:21 | NUR ---
REBECA IS RESTING ON HIS LEFT SIDE. VSS AND WDL PER MONITOR. NO NEEDS IDENTIFIED AT THIS TIME
[2024-04-13 05:51] LABS: BASOPHILS 0.7 % (0-2); EOSINOPHILS 4.8 % (0-6); HEMATOCRIT 42.4 % (35.0-50.0); HEMOGLOBIN 14.9 g/dL (12.0-18.0); MCH 31.4 (27-36); MCHC 35.1 g/dl (30-36); MCV 89.5 fl (81-99); MONOCYTES 5.9 % (0-12); NEUTROPHILS 55.6 % (39-80); PLATELET COUNT 205 K/uL (140-440); RBC 4.73 M/ul (4.3-5.7)
[2024-04-13 06:18] LABS: ALBUMIN 2.6 g/dL (3.4-5.0); ALBUMIN/GLOBULIN RATIO 0.62 (1.1-2.4); ANION GAP 11.8 (7-21); BUN/CREATININE RATIO 5.76 (6.0-28.6); CREATININE, SERUM 0.52 mg/dL (0.70-1.30); POTASSIUM 3.8 mmol/L (3.5-5.1); PROTEIN, TOTAL 6.8 g/dL (6.4-8.2)
--- NOTE | 2024-04-13 08:11 | NUR ---
UR CLINICAL/CONCURRENT REVIEW: [facility]- MEETS INPT FOR DRUG INGESTION/RHABDO, DOES NOT MEET GL DAY 2. VIARANCE COMPLETED ODS [facility] INPT 04/10/24 @ 3663 ORDER MATCHES REG RECORDS FAXED TO [facility] FOR AUTH REVIEW DISCHARGE TO HOME WHEN STABLE 04/15/24
--- NOTE | 2024-04-13 09:21 | NUR ---
PT ASSISTED UP TO CHAIR FOR BREAKFAST - WEAK AND SORE BUT STEADY ON FEET. PT/OT ORDERS REQUESTED TO MD. PT REMAINS FLAT AND WITHDRAWN, SLOW TO RESPOND, NO EYE CONTACT WHEN ASKED QUESTIONS. CIWA SCORE 12 - VALIUM ADMINISTERED. PT REPORTS NAUSEA AND DENIES WANTING TO EAT BREAKFAST, CLEAR ENSURE PROVIDED AND ENCOURAGED. VS STABLE. ROSS TO DC PER MD ORDER. PT DENIES QUESTIONS ABOUT CURRENT POC. IVF RATE LOWERED PER EMAR UDATE. CALL LIGHT IN REACH.
--- NOTE | 2024-04-13 11:18 | NUR ---
PT PROVIDED PERMISSION TO LET SISTER WHO CALLED KNOW HE WAS IN HOSPITAL AND IT WAS OK TO VISIT.
[2024-04-13] MEDS ORDERED: GABAPENTIN400 MG PO (11:39)
[2024-04-13] MEDS ORDERED: BUSPIRONE HCL10 MG PO (11:40)
--- NOTE | 2024-04-13 11:54 | NUR ---
PT PROVIDED WASH CLOTH FOR FACE AND HANDS, TEETH BRUSHED. CODY DC'D PER ORDER - PT TOLERATED WITH MINIMAL DISCOMFORT. PT DENIES WANTING ANYTHING TO EAT, STATES NAUSEA IS SEVERE. PT ASSISTED BACK TO BED FROM CHAIR, INCREASINGLY WEAK AND UNSTABLE ON FEET. CIWA SCORE INCREASED TO 20, PT NOTED TO HAVE MORE SEVERE TREMORS AND PANICKED LOOK ON FACE. IV ATIVAN ADMINISTERED OVER PO FOR FASTER ONSET. PT LAYING FLAT IN BED PER REQUEST, TACHICARDIC ON MONITOR. CALL LIGHT IN REACH.
--- NOTE | 2024-04-13 12:47 | NUR ---
PT/OT IN ROOM TO EVAL
--- NOTE | 2024-04-13 13:03 | NUR ---
PT RESTING IN BED AWAKE AFTER PT/OT EVAL. CIWA SCORE REMAINS HIGH AT 22, PO VALIUM ADMINISTERED. PT TEARFUL ABOUT NOT REMEMBERING EVENT - STATES HE DIDNT WANT ANYONE TO FIND HIM THAT NIGHT. PT REPORTS FEELING LIKE HIS LIFE IS NOT WORTH LIVING "ALL THE TIME". PT DENIES SPECIFIC FEELINGS OF WANTING TO END HIS LIFE RIGHT NOW BUT ACKNOWLEDGES DEPRESSION. STATES HE WOULD LIKE TO BE SOBER, DENIES TREATMENT WORKING BEFORE.
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
--- NOTE | 2024-04-13 14:14 | NUR ---
PT RESTING ON SIDE - APPEARS CALM, HR 80 ON MONITOR. CALL LIGHT IN REACH.
--- NOTE | 2024-04-13 14:25 | NUR ---
CALLED [facility] AND SPOKE WITH CAROLYN. STATES HE HAS A PEER MENTOR, GREGORY, WHO CAN COME SEE PATIENT WHILE HE IS IN THE HOSPITAL. GREGORY CAN COMPLETE INFORMATION FOR BEHAVIORAL HEALTH TO SEE PATIENT WHILE HE IS IN THE FACILITY WELL. STATES GREGORY WILL BE UP TO SEE PATIENT THIS AFTERNOON. INFORMED PATIENT. ALSO PROVIDED INFORMATION REGARDING [employer], [employer], [employer] WITH FOOD PANTRY PHONE NUMBERS AND [employer] INFORMATION. PATIENT DENIES OTHER NEEDS AT THIS TIME.
--- NOTE | 2024-04-13 15:11 | NUR ---
GREGORY FROM [facility] IN ROOM TO TALK WITH PT ABOUT ADDICTION SERVICES.
--- NOTE | 2024-04-13 15:21 | NUR ---
MED REC COMPLETE
--- NOTE | 2024-04-13 17:45 | NUR ---
PT SITTING UP IN BED AND REQUESTS TO EAT DINNER. REPORTS NAUSEA AND PRN GIVEN BUT HAS APPETITE. CIWA SCORE LOWEREING WITH MORE FREQUENT VALIUM. PT VOIDING POST ROSS REMOVAL WITHOUT DIFFICULTY.
--- NOTE | 2024-04-13 18:17 | NUR ---
PT ABLE TO EAT 100% OF DINNER, TREMORS MUCH IMPROVED. PT ASSISTED UP TO RECLINER STAND BY ASSIST, IMPROVED STRENGTH FROM EARLIER IN DAY. PT WATCHING TV WITH CALL LIGHT IN REACH. VS STABLE.
--- NOTE | 2024-04-13 19:25 | NUR ---
PT UP TO BATHROOM TO HAVE BM - USING FWW, DIFFICULT TO MAINTAIN STRENGTH TO GET BACK TO BED. PJ PANTS ON FOR PT COMFORT. LARGE FORMED STOOL VOIDED.
--- NOTE | 2024-04-13 19:45 | NUR ---
handoff report recieved from day shift RN. patient is resting in bed watching TV. no needs at this time, call light in reach
--- NOTE | 2024-04-13 20:35 | NUR ---
PATIENT ASSESSMENT COMPLETE. PATIENT IS AWAKE IN BED WATCHING TV. PATIENT STATES HE HAS A 10/10 HEADACHE AND FEELS NAUSEOUS. PATIENT CIWA SCORE OF 13. PRN VALIUM GIVEN PER EMAR. PATIENT GIVEN PRN MOTRIN FOR HEADACHE AND PRN COMPAZINE FOR NAUSEA PER EMAR. PATIENT REMAINS ON ROOM AIR, SPO2 94%. PATIENT CONTINUES TO HAVE OCCASIONAL COUGH. PATIENT VITAL SIGNS STABLE. FRESH ICE WATER PROVIDED. PATIENT HAS NO NEEDS AT THIS TIME. CALL LIGHT IN REACH.
--- NOTE | 2024-04-13 22:30 | NUR ---
PATIENT RESTING IN BED WITH EYES CLOSED, RESPIRATIONS EVEN AND UNLABORED. PATIENT HAS NO NEEDS AT THIS TIME. CALL LIGHT IN REACH.
[2024-04-14] VITALS (10 sets, daily range): BP systolic 115–145; BP diastolic 63–102
--- NOTE | 2024-04-14 00:15 | NUR ---
PATIENT ASSESSMENT COMPLETE. NO NEW CHANGES AT THIS TIME. PATIENT REMAINS ON ROOM AIR, SPO2 97% PATIENT VITAL SIGNS STABLE. PATIENT HEART RATE 50-60'S AT REST. PATIENT IVF INFUSING PER EMAR, IV SITE WNL. PATIENT HAS NO NEEDS AT THIS TIME, CALL LIGHT IN REACH.
--- NOTE | 2024-04-14 01:30 | NUR ---
PATIENT RESTING IN BED WITH EYES CLOSED, RESPIRATIONS EVEN AND UNLABORED. NO DISTRESS NOTED. BED IN LOW AND LOCKED POSITON WITH BED ALARM ON. CALL LIGHT IN REACH.
--- NOTE | 2024-04-14 03:21 | NUR ---
PATIENT RESTING IN BED WITH EYES CLOSED, RESPIRATIONS EVEN AND UNLABORED. NO DISTRESS NOTED. NO NEEDS IDENTIFIED AT THIS TIME. CALL LIGHT IN REACH.
--- NOTE | 2024-04-14 05:40 | NUR ---
patient states he has a headache and feels nauseous. PRN Motrin and Zofran given per EMAR. patient CIWA score of 12, PRN Valium given per EMAR. patient laying awake in bed watching tv. no further needs at this time. call light in reach.
[2024-04-14 05:43] LABS: BASOPHILS 1.2 % (0-2); HEMATOCRIT 45.7 % (35.0-50.0); HEMOGLOBIN 15.6 g/dL (12.0-18.0); LYMPHOCYTES 30.4 % (24-44); MCHC 34.1 g/dl (30-36); MCV 90.7 fl (81-99); MONOCYTES 6.1 % (0-12); NEUTROPHILS 57.3 % (39-80); PLATELET COUNT 229 K/uL (140-440); RBC 5.04 M/ul (4.3-5.7); RDW 15.4 (10.5-15.0)
[2024-04-14 06:00] LABS: ALBUMIN 2.7 g/dL (3.4-5.0); ALBUMIN/GLOBULIN RATIO 0.61 (1.1-2.4); ANION GAP 11.6 (7-21); BILIRUBIN, TOTAL 0.9 ng/dL (0.2-1.0); BUN/CREATININE RATIO 8.19 (6.0-28.6); CALCIUM 8.4 mg/dL (8.5-10.1); CREATININE, SERUM 0.61 mg/dL (0.70-1.30); MAGNESIUM 1.7 mg/dL (1.8-2.4); POTASSIUM 3.6 mmol/L (3.5-5.1); PROTEIN, TOTAL 7.1 g/dL (6.4-8.2)
[2024-04-14 06:03] LABS: SMEAR REVIEW BLOOD SEE COMMENTS
--- NOTE | 2024-04-14 06:25 | NUR ---
patient resting in bed with eyes closed, respirations even and unlabored. no distress noted. patient has call light in reach.
[2024-04-14] MEDS ORDERED: MAGNESIUM CHLORIDE 64 MG TABCR PO ONE (08:30)
--- NOTE | 2024-04-14 08:56 | NUR ---
Pt assessment complete and scheduled medications administered, PRN ativan 1mg administered for tremors, headache, sweating and anxiety. Pt states does not care to be confidential, updated housekeeper manager. Pt has nausea but declines PRN medication at this time. VSS. Afebrile. [facility] counselor in room, patient agreeable to this. No further needs at this time. Call light in reach
[2024-04-14] MEDS ORDERED: LIDOCAINE & ANTACID 35 ML BTL PO ONE (09:45)
[2024-04-14] MEDS ORDERED: THIAMINE HCL 100 MG,FOLIC ACID 1 MG,MULTIVITAMINS 10 ML in SODIUM CHLORIDE 0.9% 1,000 ML IV ONE (09:45)
--- NOTE | 2024-04-14 10:41 | NUR ---
RESTING IN BED WITH EYES CLOSED. WILL RETURN TO SPEAK WITH PATIENT LATER TODAY. [facility] PEER MENTOR WAS IN TO SEE PATIENT THIS MORNING PER NURSING STAFF.
--- NOTE | 2024-04-14 11:00 | NUR ---
GI cocktail administered, IV banana bag infusing per order.
--- NOTE | 2024-04-14 12:30 | NUR ---
CBG checked, IV ativan administered for CIWA symptoms- see flowsheet
--- NOTE | 2024-04-14 13:04 | NUR ---
IN TO SPEAK WITH PATIENT. GREGORY FROM [facility] WAS IN THIS MORNING TO SEE PATIENT. STATES HE HAS A REQUEST TO GO TO [facility] IN [place]. HE HAS PREVIOUSLY BEEN A PATIENT AT [facility]. CALLED AND SPOKE WITH CAROLYN AT [facility]. PATIENT WILL LIKELY NEED [facility] REFERRAL TO GO TO [facility]. DOES NOT ENDORSE SUICIDAL IDEATION. JUST STATES HIS MENTAL HEALTH IS "NOT GOOD." NOTIFIED NURSING IF PATIENT IS WANTING TO GO TO [facility], HE WILL NEED MENTAL HEALTH ASSESSMENT BY [facility].
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
--- NOTE | 2024-04-14 13:24 | NUR ---
[facility] CONTACTED FOR STATMENTS MADE TO CASE MANAGMENT .
--- NOTE | 2024-04-14 14:00 | NUR ---
Patient had visit from [facility] counselor- patient endorsing active SI, 15 min check and direct sitter observation initiated. Ligature risk chart complete, on physical chart.
--- NOTE | 2024-04-14 15:00 | NUR ---
PT NOT AVAILABLE FOR VISIT. PROVIDED PRAYER.
--- NOTE | 2024-04-14 19:40 | NUR ---
handoff report received from day shift RN. patient is resting in bed watching tv. 1:1 sitter at bedside for patient safety. no needs at this time.
--- NOTE | 2024-04-14 20:55 | NUR ---
PATIENT LAYING AWAKE IN BED WATCHING TV. CIWA SCORE OF 12. PRN ATIVAN AND VALIUM GIVEN PER EMAR. PATIENT STATES HE HAS A 10/10 HEADACHE, PRN MOTRIN GIVEN PER EMAR. PATIENT PROVIDED WITH FRESH ICE WATER. NO FURTHER NEEDS AT THIS TIME. 1:1 SITTER REMAINS AT BEDSIDE FOR PATIENT SAFETY.
--- NOTE | 2024-04-14 21:50 | NUR ---
PATIENT LAYING AWAKE IN BED WATCHING TV. NO NEEDS AT THIS TIME. 1:1 SITTER REMAINS AT PATIENT BEDSIDE. PATIENT VITAL SIGNS STABLE. CALL LIGHT IN REACH.
--- NOTE | 2024-04-14 23:09 | NUR ---
PATIENT PROVIDED WITH SANDWICH BOX PER REQUEST. PATIENT URINAL EMPTIED 600CC OF URINE. PATIENT HAS NO FURTHER NEEDS AT THIS TIME. CALL LIGHT IN REACH.
[2024-04-15] VITALS (10 sets, daily range): BP systolic 114–146; BP diastolic 82–97
--- NOTE | 2024-04-15 00:15 | NUR ---
patient assessment complete. patient resting in bed with eyes closed, easily wakes with verbal stimuli. patient states he feels nauseous, PRN Zofran given per emar. patient CIWA score of 11. PRN Valium and Ativan given per emar. patient IVF infusing per emar IV sites WNL. patient remains on room air, SPO2 94%. vital signs stable. 1:1 sitter remains at bedside for patient safety, no needs at this time.
--- NOTE | 2024-04-15 02:05 | NUR ---
patient laying awake in bed. urinal emptied for 500cc. patient has no needs at this time. 1:1 sitter remains at bedside for patient safety. call light in reach.
--- NOTE | 2024-04-15 03:59 | NUR ---
CIWA SCORE OF 9. PRN VALIUM GIVEN PER EMAR. PATIENT SITTING UP AWAKE IN BED WATCHING TV. PATIENT HAS NO FURTHER NEEDS AT THIS TIME. 1:1 SITTER REMAINS AT BEDSIDE. CALL LIGHT IN REACH
--- NOTE | 2024-04-15 05:30 | NUR ---
PATIENT LAYING AWAKE IN BED WATCHING TV. VITAL SIGNS STABLE. PATIENT HAS NO NEEDS AT THIS TIME. CALL LIGHT IN REACH.
[2024-04-15 05:40] LABS: BASOPHILS 1.3 % (0-2); EOSINOPHILS 3.9 % (0-6); HEMATOCRIT 43.8 % (35.0-50.0); HEMOGLOBIN 15.2 g/dL (12.0-18.0); LYMPHOCYTES 30.7 % (24-44); MCH 31.5 (27-36); MCHC 34.7 g/dl (30-36); MCV 90.8 fl (81-99); MONOCYTES 8.1 % (0-12); PLATELET COUNT 270 K/uL (140-440); RBC 4.83 M/ul (4.3-5.7); RDW 15.4 (10.5-15.0)
[2024-04-15 06:05] LABS: ALBUMIN 2.9 g/dL (3.4-5.0); ALBUMIN/GLOBULIN RATIO 0.73 (1.1-2.4); ANION GAP 14.7 (7-21); BILIRUBIN, TOTAL 0.3 ng/dL (0.2-1.0); BUN/CREATININE RATIO 10.66 (6.0-28.6); CALCIUM 8.5 mg/dL (8.5-10.1); CREATININE, SERUM 0.75 mg/dL (0.70-1.30); MAGNESIUM 1.7 mg/dL (1.8-2.4); PHOSPHORUS, INORGANIC 3.9 mg/dL (2.5-4.9); POTASSIUM 3.7 mmol/L (3.5-5.1); PROTEIN, TOTAL 6.9 g/dL (6.4-8.2)
--- NOTE | 2024-04-15 06:10 | NUR ---
PATIENT CIWA SCORE OF 11. PRN ATIVAN AND VALIUM GIVEN PER EMAR. PATIENT HAS NO FURTHER NEEDS AT THIS TIME. PATIENT IS SITTING UP AWAKE IN BED WATCHING TV. 1:1 SITTER REMAINS AT BEDSIDE FOR PATIENT SAFETY. VITAL SIGNS STABLE. CALL LIGHT IN REACH.
[2024-04-15] MEDS ORDERED: MAGNESIUM OXIDE 400 MG TABLET PO ONE (08:00)
--- NOTE | 2024-04-15 08:00 | NUR ---
Patient resting in bed with no needs. Sitter at bedside. CBG taken, breakfast given. Pt in no acute distress. Will continue plan of care.
--- NOTE | 2024-04-15 12:30 | NUR ---
In to do assessment. pt status remains unchanged. A+O, CIWA <8, requiring no PRN medication at this time. IVF infusing. 1:1 sitter at bedside.
--- NOTE | 2024-04-15 12:51 | NUR ---
DR. ROJAS IN TO SEE PATIENT AT THIS TIME. CMP TO BE ORDERED FOR IN THE AM. CONTINUE CIWA PROTOCOL WITH IV ATIVAN AND PO VALIUM. PT REMAINS 1:1 WITH PATIENT SUPERVISOR PROPELLANT CHARGE LOADING FOR SUICIDAL IDEATION.
--- NOTE | 2024-04-15 13:35 | NUR ---
CURRENTLY HAS VISITORS. HAS BEEN WORKING WITH [facility] AND [facility]. NO KNOWN CM NEEDS AT THIS TIME.
--- NOTE | 2024-04-15 14:00 | NUR ---
Patient family at bedside, this RN in room to relieve sitter staff. Pt A+O, CIWA unremarkable, no needs at this time.
--- NOTE | 2024-04-15 15:15 | NUR ---
Patient up to BR for BM. Full bedbath complete with RN assistance. Linen changed and fresh gown/pants. Room tidied. Weight obtained. Pt tolerates well, once back to bed notes mod. tremors and severe headache, nausea and sweat. PRN medications administered for CIWA 13. Lights dimmed, 1:1 sitter in room.
--- NOTE | 2024-04-15 19:45 | NUR ---
handoff report received from day shift RN. patient is laying awake in bed watching tv. 1:1 sitter remains at bedside. no needs at this time.
--- NOTE | 2024-04-15 20:25 | NUR ---
PATIENT ASSESSMENT COMPLETE. PATIENT IS RESTING IN BED WATCHING TV. PATIENT HAS FLAT AFFECT, FOLLOWS COMMANDS AND ANSWERS QUESTIONS APPROPRIATELY. PATIENT REMAINS ON ROOM AIR, SPO2 97%. PATIENT VITAL SIGNS STABLE. PATIENT IVF D/C PER MD. IV SITES SALINE LOCKED AND WNL. 1:1 SITTER REMAINS AT BEDSIDE FOR PATIENT SAFETY. NO NEEDS AT THIS TIME.
--- NOTE | 2024-04-15 22:55 | NUR ---
PATIENT CIWA SCORE OF 10. PRN VALIUM AND ATIVAN GIVEN PER EMAR. PATIENT STATES HE HAS A 10/10 HEADACHE, PRN MOTRIN GIVEN PER EMAR. PATIENT HAS NO FURTHER NEEDS AT THIS TIME. 1:1 SITTER REMAINS AT BEDSIDE FOR PATIENT SAFETY.
--- NOTE | 2024-04-15 23:47 | NUR ---
patient up to bathroom with FWW and x1 SBA. patient states his legs feel weak. patient voids, then ambulates back to bed. patient sitting up at bedside. patient has no further needs at this time, 1:1 sitter remains at bedside for patient safety.
[2024-04-16] VITALS (10 sets, daily range): BP systolic 107–138; BP diastolic 69–105
--- NOTE | 2024-04-16 01:37 | NUR ---
patient laying awake in bed watching TV. no needs at this time. 1:1 sitter remains at bedside for patient safety. call light in reach.
--- NOTE | 2024-04-16 03:02 | NUR ---
patient resting in bed with eyes closed, RR 15. no distress noted. patient has no needs at this time. 1:1 sitter remains at patient bedside for safety. call light in reach.
--- NOTE | 2024-04-16 04:51 | NUR ---
PATIENT RESTING IN BED WITH EYES CLOSED, RR 16. NO DISTRESS NOTED. 1:1 SITTER REMAINS AT PATIENT BEDSIDE FOR PATIENT SAFETY. NO NEEDS AT THIS TIME.
[2024-04-16 05:41] LABS: BASOPHILS 0.8 % (0-2); EOSINOPHILS 2.6 % (0-6); HEMOGLOBIN 15.8 g/dL (12.0-18.0); LYMPHOCYTES 21.8 % (24-44); MCH 31.3 (27-36); MCHC 34.4 g/dl (30-36); MCV 91.1 fl (81-99); MONOCYTES 7.4 % (0-12); NEUTROPHILS 67.4 % (39-80); PLATELET COUNT 267 K/uL (140-440); RBC 5.05 M/ul (4.3-5.7); RDW 15.8 (10.5-15.0)
[2024-04-16 05:54] LABS: ALBUMIN/GLOBULIN RATIO 0.71 (1.1-2.4); ANION GAP 14.6 (7-21); BILIRUBIN, TOTAL 0.4 ng/dL (0.2-1.0); BUN/CREATININE RATIO 12.5 (6.0-28.6); CALCIUM 8.9 mg/dL (8.5-10.1); CREATININE, SERUM 0.72 mg/dL (0.70-1.30); PHOSPHORUS, INORGANIC 4.7 mg/dL (2.5-4.9); POTASSIUM 3.6 mmol/L (3.5-5.1); PROTEIN, TOTAL 7.2 g/dL (6.4-8.2)
--- NOTE | 2024-04-16 06:24 | NUR ---
patient resting in bed with eyes closed, RR 14. no distress noted. no needs identified at this time. 1:1 sitter remains at bedside for patient safety.
--- NOTE | 2024-04-16 07:37 | NUR ---
report from morris hung, 1:1 sitter in room, pt in bed with call light resting.
--- NOTE | 2024-04-16 09:10 | NUR ---
assessment complete, pt reports headache, sweating, mild shakes, bs 132 no insulin needed. meal provided. sitter at bedside. opened up curtains and discussed plan of care.
--- NOTE | 2024-04-16 10:27 | NUR ---
CALL TO DR - AWARE OF [facility] HERE, AMB IN ROOM TO BR VOID 700 ML. HAS SMALL AREA ON PUBIC AREA OF PIMPLE LIKE SORE THAT IS BLEEDING - COVERED WITH BAND AID - PT REPORTS IT IS A SKIN CONDITION KNOWN TO HIM. OTHER HEALED AREAS NOTED AROUND LEGS AND ABD. PT UP IN CHAIR VISITING WITH [facility]. CALL LIGHT IN REACH.
--- NOTE | 2024-04-16 12:01 | NUR ---
ciwa 7, flat affect. back in bed with a 1;[address] sitter. watching tv reports no more headache.
--- NOTE | 2024-04-16 14:07 | NUR ---
VISITORS IN ROOM AT THIS TIME. WORKING WITH [facility] AND [facility]. NO KNOWN CM NEEDS AT THIS TIME.
[2024-04-16] MEDS ORDERED: GABAPENTIN 300 MG CAP PO SCH (14:18)
--- NOTE | 2024-04-16 14:30 | NUR ---
1:1 sitter visualizes pt while there are visitors in room, charger operator aware. pt denies needs.
--- NOTE | 2024-04-16 14:38 | NUR ---
pt given scheduled po med. no tremor noted. smiles and visits with guests. call light in reach and sitter present.
--- NOTE | 2024-04-16 15:17 | NUR ---
UR CONCURRENT REVIEW: [facility]- DOES NOT TAMMI GL DAY TO IS ON MENTAL HEALTH HOLD FOR SI. ODS EOCCO UPDATED CLINICAL FAXED TO [facility] FOR REVIEW MEDICALLY CLEARED TODAY, AWAITING MENTAL HEALTH PLACEMENT 04/20/24
--- NOTE | 2024-04-16 16:28 | NUR ---
[facility] staff here to see pt, report given to staff - medically clear. pt requests meds for anxiety, ativan and valium were dc by
--- NOTE | 2024-04-16 18:38 | NUR ---
PT REQUESTED HIS IV OUT - COMPRIMISED AND TOOK OUT THE LEFT IV WNL. PT ASKED FOR ANTIANXIETY MED. NO ORDERS AT THIS TIME, DISCUSSED HOW HE WAS FEELING AND WHAT HE WOULD NORMALLY TAKE. HE REPORTS HE WANTS TO SLEEP AND TURN OFF HIS BRAIN FROM OVER THINKING. WE TALKED ABOUT VISTIRIL, BENADRYL AND MEDS HE HAS TAKEN FOR DT. PT FAMILY THEN ENTERED THE ROOM AND RN LET HIM KNOW THAT I WOULD MAKE A NOTE FOR THE DR TO CONSIDER MEDICATIONS AT HS. PT WAS HAPPY TO VISIT WITH FAMILY AT THIS TIME. 1:1 STAFF SITTER CONTINUES TO BE IN THE ROOM.
[2024-04-16] MEDS ORDERED: hydrOXYzine pamoate 50 MG CAP PO PRN (19:00)
--- NOTE | 2024-04-16 19:04 | NUR ---
PT TO MED SURG AFTER TALKING WITH DR ROJAS. SEE NEW ORDER FOR VISTRIL FOR ANXIETY. UPDATE TO CHARGE AND DR. ALL PT BELONGINGS AND STAFF TO MED SURG. PERSONAL BELONGINGS LABELED WITH NAME AND AT NURSES STATION PT IS ON A HOLD, WATCH.
--- NOTE | 2024-04-16 19:29 | NUR ---
RECEIVED REPORT FROM SANDEE RED. PT RESTING IN BED, 1:1 SITTER AT BEDSIDE. PT DENIES ANY NEEDS OR CONCERNS AT THIS TIME. CALL LIGHT WITHIN REACH.
--- NOTE | 2024-04-16 19:58 | NUR ---
GIRLFRIEND DEEJAY CALLED AND ASKED TO TALK TO pt, STATING, "HE MOVED INTO A NEW ROOM". pt GAVE VERBAL PERMISSION TO TRANSFER GF INTO ROOM VIA PHONE (PHONE PROVIDED AND REMOVED FOLLOWING CONVERSATION, pt REMAINS 1:1 WITH SITTER IN ROOM).
--- NOTE | 2024-04-16 21:40 | NUR ---
PT RESTING IN BED. 1:[address] ORIENTED X 4. FLAT AFFECT. DENIES PAIN. LSC. HRR. BTA. LBM TODAY. VOIDS WNL. SL LAC WNL. VERY SLIGHT TREMORS TO BUE. DENIES HALLUCINATIONS. VERY SLIGHT ITCHING. PT REQUESTED PRN VISTARIL FOR HS-ADMINISTERED PER EMAR. PT REPORTS SMALL OPEN WOUND TO RIGHT GROIN R/T A PREVIOUS SKIN CONDITION-BANDAID IN PLACE AND CDI. CALL LIGHT WITHIN REACH.
--- NOTE | 2024-04-16 22:49 | NUR ---
PT SLEEPING SOUNDLY, 1:1 SITTER AT BEDSIDE.
[2024-04-17] VITALS (10 sets, daily range): BP systolic 111–130; BP diastolic 66–77
--- NOTE | 2024-04-17 00:19 | NUR ---
PT SLEEPING, SNORING. 1:1 SITTER AT BEDSIDE FOR SAFETY.
--- NOTE | 2024-04-17 02:00 | NUR ---
PT SLEEPING, SITTER AT BEDSIDE.
--- NOTE | 2024-04-17 04:45 | NUR ---
SLEEPING SOUNDLY, APPEARS COMFORTABLE.
--- NOTE | 2024-04-17 05:40 | NUR ---
PT SLEEPING SOUNDLY. APPEARS COMFORTABLE. SITTER AT BEDSIDE FOR SAFETY.
--- NOTE | 2024-04-17 07:10 | NUR ---
PT RESTING IN BED WITH EYES CLOSED AND RESPIRATIONS EVEN AND UNLABORED. CALL LIGHT WITHIN REACH.
[2024-04-17] MEDS ORDERED: busPIRone HCL 5 MG TAB PO SCH (09:00)
--- NOTE | 2024-04-17 09:53 | NUR ---
COMMNITY COUNSELING HEAD GOLF COACH IN TO SPEAK WITH PT. PAINTING SUPERVISOR IN WITH PT 1:1 SITTER.
--- NOTE | 2024-04-17 09:59 | NUR ---
PATIENT IS IN BED AT THIS TIME, cn
--- NOTE | 2024-04-17 10:00 | NUR ---
PATIENT IS IN BED AT THIS TIME. TRAINING AND DOCUMENTATION SPECIALIST CHARTED VITALS AND i & O'S. CALL LIGHT WITHIN REACH, NOTHING ELSE NEEDED AT THIS TIME.
--- NOTE | 2024-04-17 10:20 | NUR ---
PT RESTING IN BED WITH 1:1 SITTER IN ROOM, PT HAS VISITOR IN ROOM.
--- NOTE | 2024-04-17 10:29 | NUR ---
UR CONCURRENT [place] [facility] [place] IS ON MENTAL HEALTH HOLD FOR SI. ODS EOCCO UPDATED CLINICAL FAXED TO [facility] FOR REVIEW MEDICALLY CLEARED, AWAITING MENTAL HEALTH PLACEMENT 04/20/24
--- NOTE | 2024-04-17 11:30 | NUR ---
Pt remains with 1:1 sitter. Moi from [facility] was in earlier and Y A&D cont. to visit. No needs from CM at this time.
--- NOTE | 2024-04-17 12:45 | NUR ---
PT RESTING IN BED WATCHING TV. PT JUST FINISHED LUNCH AND TOLERATED WELL. NO REQUESTS AT THIS TIME. 1:1 SITTER IN ROOM.
--- NOTE | 2024-04-17 13:13 | NUR ---
OCCUPATIONAL THERAPY IN TO WORK WITH PT.
--- NOTE | 2024-04-17 14:36 | NUR ---
PT STATES HE IS VERY ANXIOUS, SCHEDULED BUSPAR GIVEN, AND EMOTIONAL SUPPORT GIVEN. SITTER IN ROOM 1:1. DIET SODA GIVEN PER PT REQUEST. NO OTHER REQUESTS AT THIS TIME.
--- NOTE | 2024-04-17 15:00 | NUR ---
PT'S MOTHER IN TO VISIT PT. BROUGHT PT BELONGINGS, BELONGINGS LABELED AND BROUGHT OUT OF PT'S ROOM. INSTRUCTED PT AND MOTHER THAT PT IS NOT SUPPOSED TO HAVE PERSONAL BELONGINGS IN ROOM PER PROTOCOL. BOTH STATED UNDERSTANDING. SITTER IN ROOM 1:1.
--- NOTE | 2024-04-17 17:22 | NUR ---
PT SITTING UP IN BED WATCHING TV AND EATING DINNER. SITTER IN ROOM 1:1. NO REQUESTS AT THIS TIME.
--- NOTE | 2024-04-17 18:14 | NUR ---
pt resting in bed watching tv, no requests at this time. sitter in room 1:1
--- NOTE | 2024-04-17 19:16 | NUR ---
REPORT RECEIVED FROM SANDEE ANDINO. PT RESTING IN BED, SITTER AT BEDSIDE FOR SAFETY. DENIES NEEDS AT THIS TIME.
--- NOTE | 2024-04-17 20:00 | NUR ---
PT RESTING IN BED. 1:1 SITTER AT BEDSIDE. DENIES PAIN. O x 4. FLAT AFFECT. REPORTS INT ANXIETY AND SOME DEPRESSION TODAY. PRN VISTARIL ADMINISTERED PER EMAR. BG 214, SLIDING SCALE INSULIN ADMINISTERED PER EMAR. LSC. HRR. BTA. LBM TODAY. VOIDS WNL. SBA TO BR. RAC SL WNL. BANDAID TO RIGHT GROIN CDI. HS SNACK PROVIDED PER PT REQUEST. CALL LIGHT WITHIN ROOM.
--- NOTE | 2024-04-17 20:28 | NUR ---
SHEET TURNER OBTAINED VITALS AND I&O. VITALS MACHINE CORDS REMOVED FROM ROOM AFTER VITALS COMPLETED. PT STATES NO NEEDS AT THIS TIME. SHEET TURNER REMAINS IN ROOM SITTER.
--- NOTE | 2024-04-17 22:15 | NUR ---
PT ASLEEP, APPEARS COMFORTABLE. SITTER AT BEDSIDE FOR SAFETY.
--- NOTE | 2024-04-18 00:21 | NUR ---
PT SLEEPING SOUNDLY, APPEARS COMFORTABLE. SITTER AT BEDSIDE FOR SAFETY.
--- NOTE | 2024-04-18 02:08 | NUR ---
gamal from [facility] called and asked if pt is still in need of bed and confirmed he is still on waitlist for available bed. primary rn updated.
--- NOTE | 2024-04-18 02:24 | NUR ---
PT SLEEPING SOUNDLY. 1:1 SITTER REMAINS AT BEDSIDE FOR SAFETY.
--- NOTE | 2024-04-18 04:10 | NUR ---
PT SLEEPING SOUNDLY-APPEARS COMFORTABLE. SITTER AT BEDSIDE.
[2024-04-18 05:34] VITALS: BP 117/60
[2024-04-18 05:38] VITALS: BP 117/60
[2024-04-18 06:07] LABS: ANION GAP 14.1 (7-21); BUN/CREATININE RATIO 15.11 (6.0-28.6); CALCIUM 8.8 mg/dL (8.5-10.1); CREATININE, SERUM 0.86 mg/dL (0.70-1.30); MAGNESIUM 1.9 mg/dL (1.8-2.4); PHOSPHORUS, INORGANIC 3.2 mg/dL (2.5-4.9); POTASSIUM 4.1 mmol/L (3.5-5.1)
--- NOTE | 2024-04-18 06:38 | NUR ---
SLEEPING SOUNDLY. SITTER AT BEDSIDE.
--- NOTE | 2024-04-18 07:10 | NUR ---
REPORT REC'D FROM MEGAN IGNACIO. PT UP TO BRP. SITTER IN ROOM
[2024-04-18 09:15] VITALS: BP 119/72
--- NOTE | 2024-04-18 09:30 | NUR ---
SW FROM [facility] IN TO SEE PATIENT FOR DAILY EVALUATION.
--- NOTE | 2024-04-18 10:20 | NUR ---
SALTY FROM [facility] REQUESTED CURRENT COVID TEST FOR POSSIBLE PLACEMENT. COVID SWAB COMPLETED AND SENT TO LAB. RESULTS NEED TO BE FAXED TO NOEMÍ AT [facility] FAX# [phone]
[2024-04-18 10:37] VITALS: BP 119/72
--- NOTE | 2024-04-18 11:16 | NUR ---
COVID RESULTS FAXED TO [facility] [phone] TO BE SENT TO [facility] IN [place]
--- NOTE | 2024-04-18 11:39 | NUR ---
RECEIVED CALL FROM [facility] THAT THEY HAVE A BED FOR [facility]. REQUESTING HOSPITALIST CONTACT, WHICH WAS PROVIDED. THEY WILL CALL DR. MCCARTY. THEY REQUESTED COVID TEST TO BE FAXED TO: [phone], THAT RECORD WAS FAXED. CLINIC OFFICE ASSISTANT INFORMED AND DR. ROJAS NOTIFIED.
--- NOTE | 2024-04-18 11:43 | NUR ---
PT NOTIFIED BED IS AVAIABLE FOR ADMISSION AT [facility] IN [place]. PT INFORMED AND PROVIDED CONTACT INFORMATION FOR FACILITY.
[2024-04-18 12:22] VITALS: BP 126/78
--- NOTE | 2024-04-18 15:31 | NUR ---
CALL REC'D FROM [place] WITH MIGUEL RODRIGEZ WITH [facility] TRANSPORT WILL BE AT HOSPITAL FOR TRANSPORTATION AROUND 1900. PT INFORMED. CHARGE NURSE AT [facility] #[phone]
[2024-04-18 17:19] VITALS: BP 125/82
[2024-04-18] MEDS ORDERED: METFORMIN HCL1000 M1 PO (17:19)
--- NOTE | 2024-04-18 17:21 | NUR ---
REPORT CALLED TO [facility] [phone]
--- NOTE | 2024-04-18 17:57 | NUR ---
PT PROVIDED WITH BOXED MEAL FOR TRANSPORTATION. IV REMOVED. BELONGINGS TO BE GIVEN TO [employer] FOR TRANSPORTATION.
== END 2024-04-18 16:21 | disposition short-term general hospital (02) | DRG 897 ==
LOC: ED 16:12 → CCU 19:13 → MS 04-16 19:26
PROVIDERS: Emergency Medicine; Student in an Organized Health Care Education/Training Program; ADMIT Family Medicine; ATTEND Family Medicine
PROC: 0T9B70Z Drainage of Bladder with Drainage Device, Via Natural or Artificial Opening (ICD-10-PCS; 2024-04-10)
PROC: HZ2ZZZZ Detoxification Services for Substance Abuse Treatment (ICD-10-PCS; principal; 2024-04-12)
DX: F10.239 Alcohol dependence with withdrawal, unspecified (principal); M62.82 Rhabdomyolysis; R45.851 Suicidal ideations; E87.20 Acidosis, unspecified; R44.3 Hallucinations, unspecified; T68.XXXA Hypothermia, initial encounter; F10.229 Alcohol dependence with intoxication, unspecified; F12.10 Cannabis abuse, uncomplicated; E11.9 Type 2 diabetes mellitus without complications; E87.6 Hypokalemia; F41.1 Generalized anxiety disorder; E83.42 Hypomagnesemia; E83.39 Other disorders of phosphorus metabolism; E83.51 Hypocalcemia; R51.9 Headache, unspecified; R25.1 Tremor, unspecified; F17.210 Nicotine dependence, cigarettes, uncomplicated; Y90.8 Blood alcohol level of 240 mg/100 ml or more; Z79.4 Long term (current) use of insulin; Z79.899 Other long term (current) drug therapy; Z79.85 Long-term (current) use of injectable non-insulin antidiabetic drugs; X31.XXXA Exposure to excessive natural cold, initial encounter
CPT/HCPCS: 36415; 36592; 70450; 71045; 80048; 80053; 80307; 81001; 82553; 82803; 83036; 83605; 83690; 83735; 84100; 84443; 85025; 85060; 93005; 93010; 97162; 97166; 97530; A9270; A9270-GY; G0480; J0780; J1650; J1815; J1885; J2060; J2405; J2470; J3411; J3475; J3480; J7030; J7060; J7121; U0002